=== PATIENT | male | born 1970 | race Caucasian/White ===

== ENCOUNTER 2020-09-01 10:42 | Outpatient (REF) | payer OTHER, SELFPAY ==
[2020-09-01 10:52] LABS: MANUAL DIFF FLAG NO
[2020-09-01 11:23] LABS: Basophils Percent Auto 0.5 % (0-2); Eosinophils Absolute Auto 0.2 X10*3/uL (0.0-0.4); Hemoglobin 14.2 g/dl (14.0-18.0); Imm Gran Abs Auto 0.05 X10*3/uL (0.00-0.03); Imm Gran Pct Auto 0.7 % (0.0-0.4); Lymphocytes Absolute Auto 2.3 X10*3/uL (1.2-4.9); Lymphocytes Percent Auto 31.3 % (20-40); Mean Corpuscular HGB Conc 32.3 g/dl (31.0-36.0); Mean Corpuscular Hemoglobin 29.1 pg (27.0-33.0); Mean Corpuscular Volume 90.2 fL (80-98); Mean Platelet Volume 10.7 fL (9.4-12.4); Monocytes Absolute Auto 0.5 X10*3/uL (0.1-1.2); Neutrophils Absolute Auto 4.3 X10*3/uL (2.0-8.3); Neutrophils Percent Auto 58.5 % (45-73); Platelet Count 239 X10*3/uL (160-400); Red Blood Count 4.88 X10*6/uL (4.60-5.80); Red Cell Distribution Width 13.8 % (11.0-16.0); White Blood Count 7.4 X10*3/uL (4.8-10.8)
[2020-09-01 11:35] LABS: Glucose Urine UA NEG (NEG); Leukocyte Esterase Urine NEG (NEG); Nitrite Urine NEG (NEG); PH 5.5 (5.0-8.0); Specific Gravity - Urine >= 1.030 (1.005-1.025); Urine Blood NEG (NEG); Urine Ketones NEG (NEG); Urine Protein NEG (NEG-TRACE)
[2020-09-01 11:39] LABS: Appearance Urine HAZY; Color Urine YELLOW
[2020-09-01 12:24] LABS: Alanine Aminotransferase 16 U/L (0-40); Albumin Level 4.4 g/dL (3.5-5.0); Alkaline Phosphatase 59 U/L (39-117); Anion Gap 13 (12-20); Aspartate Amino Transferase 18 U/L (5-37); Blood Urea Nitrogen 26 mg/dL (9-16); Calcium 9.2 mg/dL (8.4-10.2); Carbon Dioxide 29 mmol/L (22-29); Chloride 104 mmol/L (96-108); Cholesterol 195 mg/dL; Estimated Glomerular Filt Rate > 60; Glucose Fasting 101 mg/dL (60-99); HDL Cholesterol 73 mg/dL; LDL Cholesterol Calculated 113 mg/dl; Potassium 3.9 mmol/L (3.3-5.1); Sodium 142 mmol/L (135-145); Triglycerides 47 mg/dL
[2020-09-01 12:38] LABS: PSA,Total (Free>4and<10) 2.13 ng/mL (0.00-4.00)
== END 2020-09-01 10:43 | disposition home or self-care (01) ==
LOC: HO.LNP 10:42
PROVIDERS: Visit Provider Internal Medicine
DX: Z00.00 Encounter for general adult medical examination without abnormal findings (principal); R79.89 Other specified abnormal findings of blood chemistry; I10 Essential (primary) hypertension; Z12.5 Encounter for screening for malignant neoplasm of prostate
CPT/HCPCS: 80053; 80061; 81003; 84153; 85025

== ENCOUNTER 2022-01-04 10:41 | Outpatient (REF) | payer OTHER, SELFPAY ==
[2022-01-04 10:45] LABS: MANUAL DIFF FLAG NO
[2022-01-04 11:10] LABS: Basophils Absolute Auto 0.1 X10*3/uL (0.0-0.2); Basophils Percent Auto 0.8 % (0-2); Eosinophils Absolute Auto 0.2 X10*3/uL (0.0-0.4); Eosinophils Percent Auto 2.8 % (0-4); Hematocrit 43.9 % (42.0-52.0); Imm Gran Abs Auto 0.02 X10*3/uL (0.00-0.03); Imm Gran Pct Auto 0.3 % (0.0-0.4); Lymphocytes Absolute Auto 1.7 X10*3/uL (1.2-4.9); Mean Corpuscular HGB Conc 31.9 g/dl (31.0-36.0); Mean Corpuscular Hemoglobin 28.5 pg (27.0-33.0); Mean Corpuscular Volume 89.2 fL (80.0-98.0); Mean Platelet Volume 10.6 fL (9.4-12.4); Monocytes Absolute Auto 0.5 X10*3/uL (0.1-1.2); Monocytes Percent Auto 7.8 % (2-11); Neutrophils Absolute Auto 3.9 x10*3/uL (2.0-8.3); Neutrophils Percent Auto 61.3 % (45-73); Platelet Count 271 X10*3/uL (160-400); Red Blood Count 4.92 X10*6/uL (4.60-5.80); Red Cell Distribution Width 13.8 % (11.0-16.0); White Blood Count 6.4 X10*3/uL (4.8-10.8)
[2022-01-04 11:21] LABS: Alanine Aminotransferase 17 U/L (0-40); Albumin Level 4.4 g/dL (3.5-5.0); Alkaline Phosphatase 61 U/L (39-117); Anion Gap 13 (12-20); Aspartate Amino Transferase 19 U/L (5-37); Bilirubin Total 0.8 mg/dL (0.0-1.0); Blood Urea Nitrogen 24 mg/dL (9-16); Calcium 9.3 mg/dL (8.4-10.2); Carbon Dioxide 29 mmol/L (22-29); Chloride 104 mmol/L (96-108); Cholesterol 191 mg/dL; Estimated Glomerular Filt Rate > 60; Glucose Fasting 106 mg/dL (60-99); HDL Cholesterol 76 mg/dL; LDL Cholesterol Calculated 107 mg/dl; Sodium 142 mmol/L (135-145); Total Protein 7.2 g/dL (6.5-8.0); Triglycerides 40 mg/dL
[2022-01-04 11:47] LABS: PSA,Total (Free>4and<10) 2.01 ng/mL (0.00-4.00)
[2022-01-04 11:50] LABS: Appearance Urine CLEAR; Color Urine YELLOW; Glucose Urine UA NEG (NEG); Leukocyte Esterase Urine NEG (NEG); Nitrite Urine NEG (NEG); PH 5.5 (5.0-8.0); Specific Gravity - Urine >= 1.030 (1.005-1.025); Urine Blood NEG (NEG); Urine Ketones NEG (NEG); Urine Protein NEG (NEG-TRACE)
== END 2022-01-04 10:42 | disposition home or self-care (01) ==
LOC: HO.LNP 10:41
PROVIDERS: Visit Provider Internal Medicine
DX: Z00.00 Encounter for general adult medical examination without abnormal findings (principal); I10 Essential (primary) hypertension; Z12.5 Encounter for screening for malignant neoplasm of prostate
CPT/HCPCS: 80053; 80061; 81003; 84153; 85025

== ENCOUNTER 2023-03-18 10:42 | Outpatient (REF) | payer OTHER, SELFPAY ==
[2023-03-18 10:53] LABS: MANUAL DIFF FLAG NO
[2023-03-18 11:53] LABS: Basophils Absolute Auto 0.1 X10*3/uL (0.0-0.2); Basophils Percent Auto 0.7 % (0-2); Eosinophils Absolute Auto 0.4 X10*3/uL (0.0-0.4); Eosinophils Percent Auto 5.8 % (0-4); Hematocrit 44.1 % (42.0-52.0); Hemoglobin 14.3 g/dl (14.0-18.0); Imm Gran Abs Auto 0.02 X10*3/uL (0.00-0.03); Imm Gran Pct Auto 0.3 % (0.0-0.4); Lymphocytes Absolute Auto 1.9 X10*3/uL (1.2-4.9); Lymphocytes Percent Auto 28.1 % (20-40); Mean Corpuscular HGB Conc 32.4 g/dl (31.0-36.0); Mean Corpuscular Hemoglobin 28.6 pg (27.0-33.0); Mean Corpuscular Volume 88.2 fL (80.0-98.0); Mean Platelet Volume 10.3 fL (9.4-12.4); Monocytes Absolute Auto 0.5 X10*3/uL (0.1-1.2); Monocytes Percent Auto 6.8 % (2-11); Neutrophils Percent Auto 58.3 % (45-73); Platelet Count 254 X10*3/uL (160-400); White Blood Count 6.9 X10*3/uL (4.8-10.8)
[2023-03-18 12:02] LABS: Appearance Urine Clear; Color Urine Yellow; Glucose Urine UA Negative (Negative); Leukocyte Esterase Urine Negative (Negative); Nitrite Urine Negative (Negative); PH 5.5 (5.0-9.0); Specific Gravity - Urine 1.025 (1.005-1.025); Urine Blood Negative (Negative); Urine Ketones Negative (Negative); Urine Protein Negative (Neg-Trace)
[2023-03-18 12:08] LABS: Bacteria Urine None Seen (None Seen); Hyaline Casts Urine 0-2 /LPF (0-2); RBC Urine 0-2 /HPF (0-2); Squamous Epithelial Cell Urine 0-2 /HPF (0-2); WBC Urine 0-5 /HPF (0-5)
[2023-03-18 12:54] LABS: Alanine Aminotransferase 13 U/L (0-40); Albumin Level 4.3 g/dL (3.5-5.0); Alkaline Phosphatase 51 U/L (39-117); Anion Gap 11 (12-20); Aspartate Amino Transferase 17 U/L (5-37); Bilirubin Total 0.8 mg/dL (0.0-1.0); Blood Urea Nitrogen 20 mg/dL (9-16); Calcium 9.4 mg/dL (8.4-10.2); Carbon Dioxide 29 mmol/L (22-29); Chloride 104 mmol/L (96-108); Cholesterol 204 mg/dL (<200); Estimated Glomerular Filt Rate > 60; Glucose Fasting 102 mg/dL (60-99); HDL Cholesterol 70 mg/dL (>40); LDL Cholesterol Calculated 120 mg/dL (<100); Potassium 3.8 mmol/L (3.3-5.1); Sodium 140 mmol/L (135-145); Total Protein 7.2 g/dL (6.5-8.0); Triglycerides 72 mg/dL (<150)
[2023-03-18 13:12] LABS: PSA,Total (Free>4and<10) 2.84 ng/mL (0.00-4.00)
== END 2023-03-18 10:43 | disposition home or self-care (01) ==
LOC: HO.LNP 10:42
PROVIDERS: Visit Provider Internal Medicine
DX: Z00.00 Encounter for general adult medical examination without abnormal findings (principal); I10 Essential (primary) hypertension; Z12.5 Encounter for screening for malignant neoplasm of prostate
CPT/HCPCS: 80053; 80061; 81001; 84153; 85025

== ENCOUNTER 2024-05-07 11:46 | Outpatient (REF) | payer OTHER, SELFPAY ==
[2024-05-07 11:49] LABS: MANUAL DIFF FLAG NO
[2024-05-07 12:12] LABS: Appearance Urine Clear; Basophils Percent Auto 0.5 % (0-2); Color Urine Yellow; Eosinophils Absolute Auto 0.3 X10*3/uL (0.0-0.4); Eosinophils Percent Auto 3.4 % (0-4); Glucose Urine UA Negative (Negative); Hematocrit 44.6 % (42.0-52.0); Hemoglobin 14.2 g/dl (14.0-18.0); Imm Gran Abs Auto 0.04 X10*3/uL (0.00-0.03); Imm Gran Pct Auto 0.5 % (0.0-0.4); Leukocyte Esterase Urine Negative (Negative); Lymphocytes Absolute Auto 1.9 X10*3/uL (1.2-4.9); Lymphocytes Percent Auto 25.3 % (20-40); Mean Corpuscular HGB Conc 31.8 g/dl (31.0-36.0); Mean Corpuscular Hemoglobin 28.1 pg (27.0-33.0); Mean Corpuscular Volume 88.1 fL (80.0-98.0); Mean Platelet Volume 11.4 fL (9.4-12.4); Monocytes Absolute Auto 0.5 X10*3/uL (0.1-1.2); Neutrophils Absolute Auto 4.7 x10*3/uL (2.0-8.3); Neutrophils Percent Auto 63.3 % (45-73); Nitrite Urine Negative (Negative); PH 6.5 (5.0-9.0); Platelet Count 230 X10*3/uL (160-400); Red Blood Count 5.06 X10*6/uL (4.60-5.80); Red Cell Distribution Width 14.6 % (11.0-16.0); Urine Blood Negative (Negative); Urine Ketones Negative (Negative); Urine Protein Negative (Neg-Trace); White Blood Count 7.4 X10*3/uL (4.8-10.8)
[2024-05-07 12:16] LABS: Bacteria Urine None Seen (None Seen); Hyaline Casts Urine 0-2 /LPF (0-2); RBC Urine 0-2 /HPF (0-2); Squamous Epithelial Cell Urine 0-2 /HPF (0-2); WBC Urine 0-5 /HPF (0-5)
[2024-05-07 12:34] LABS: Anion Gap 13 (12-20); Bilirubin Total 0.9 mg/dL (0.0-1.0); Blood Urea Nitrogen 24 mg/dL (9-16); Calcium 9.7 mg/dL (8.4-10.2); Carbon Dioxide 28 mmol/L (22-29); Chloride 104 mmol/L (96-108); Estimated Glomerular Filt Rate > 60; Glucose Fasting 100 mg/dL (60-99); Potassium 3.9 mmol/L (3.3-5.1); Sodium 141 mmol/L (135-145)
[2024-05-07 12:35] LABS: Alanine Aminotransferase 26 U/L (0-40); Albumin Level 4.3 g/dL (3.5-5.0); Alkaline Phosphatase 57 U/L (39-117); Aspartate Amino Transferase 25 U/L (5-37); Cholesterol 222 mg/dL (<200); HDL Cholesterol 75 mg/dL (>40); LDL Cholesterol Calculated 127 mg/dL (<100); Total Protein 7.4 g/dL (6.5-8.0); Triglycerides 101 mg/dL (<150)
[2024-05-07 12:51] LABS: PSA,Total (Free>4and<10) 4.22 ng/mL (0.00-4.00)
[2024-05-11 12:09] LABS: Free Prostate Spec Ag 0.6 ng/mL; Percent Free Prostate Spec Ag 16 % (calc) (>25); Prostate Specific Ag Total 3.7 ng/mL (< OR = 4.0)
== END 2024-05-07 11:47 | disposition home or self-care (01) ==
LOC: HO.LNP 11:46
PROVIDERS: Visit Provider Internal Medicine
DX: Z00.00 Encounter for general adult medical examination without abnormal findings (principal); I10 Essential (primary) hypertension; Z12.5 Encounter for screening for malignant neoplasm of prostate; R97.20 Elevated prostate specific antigen [PSA]
CPT/HCPCS: 80053; 80061; 81001; 84153; 84154; 85025

== ENCOUNTER 2024-06-01 11:52 | Outpatient (REF) | payer OTHER, SELFPAY | END 2024-06-01 11:53 | disposition home or self-care (01) | LOC: HO.LNP 11:52 | PROVIDERS: Visit Provider Internal Medicine | DX: R97.20 Elevated prostate specific antigen [PSA] (principal); Z12.5 Encounter for screening for malignant neoplasm of prostate | CPT/HCPCS: 84153 ==

== ENCOUNTER 2024-07-02 11:14 | Outpatient (REF) | payer OTHER, SELFPAY ==
[2024-07-02 12:18] LABS: PSA,Total (Free>4and<10) 2.91 ng/mL (0.00-4.00)
== END 2024-07-02 11:15 | disposition home or self-care (01) ==
LOC: HO.LNP 11:14
PROVIDERS: Visit Provider Internal Medicine
DX: R97.20 Elevated prostate specific antigen [PSA] (principal); Z12.5 Encounter for screening for malignant neoplasm of prostate
CPT/HCPCS: 84153

== ENCOUNTER 2024-10-01 10:28 | Outpatient (REF) | payer BC, SELFPAY ==
[2024-10-01 11:15] LABS: PSA,Total (Free>4and<10) 3.27 ng/mL (0.00-4.00)
--- OUTSIDE RECORDS SUMMARY | 2024-10-01 11:34 | XMS_ITS ---
Author Organization Sp Manuel MD Address [address] [place], [place] [phone] Care Team Providers Care Cigarette Inspector Name Role Phone Sp Manuel Primary Care Provider [phone] Results Component Value Reference Range Notes PSA,Total (Free>4and<10) (No t yet reviewed by provider) Interpretation: Performing Lab:[facility], [address] [place] [phone] Notes/Report: PSA,Total (Free>4and<10) 3.27 0.00-4.00 ng/mL A Free PSA was not performed: The percentage of Free PSA can be used to enhance the differentiation of prostate cancer from benign prostatic disease in subjects whose PSA levels are between 4.0 and 10.0 ng/mL. For subjects whose PSA levels are below 4.0 or above 10.0 ng/mL, the risk of prostate cancer is determined on the basis of the PSA alone. Therefore the % Free PSA is recommended only for those subjects whose PSA levels are between 4.0 and 10.0 ng/mL. PSA methodology: Hatfield Alinity i Chemiluminescent Microparticle Immunoassay (CMIA) REASON FOR VISIT PSA Encounters Encounter Location Date Provider Diagnosis Sp Manuel MD [address] [place], [place] [phone] 10/01/2024 Sp Manuel Rising PSA level R97.20 Assessments Encounter Date Diagnosis (ICD Code) Assessment Notes Treatment Notes Treatment Clinical Notes Section Notes 10/01/2024 Rising PSA level (ICD-10 - R97.20) Plan Of Treatment Pending Test Test Name Order Date PSA,Total (Free>4and<10) 10/01/2024 Next Appt Details Provider Name:Sp Ng ier, 05/10/2025 07:15:00 AM, [address], [address], [place], [place], [phone], Provider Name:Sp Ng ier, 05/17/2025 02:30:00 PM, [address], [address], [place], [phone], Progress Notes * Ricky SOMMER PDOB:[birth year] (54 yo M)Acc No.[id number]:10/01/2024 Progress Note Patient:Ricky MUELLER Provider:?Sp Manuel MD :1970???Age:54 Y???Sex:Male Romario e:10/01/2024 Address: [address], [place] [facility] Subjective: * Chief Complaints: * ???1. PSA. * Medical History:? Objective: * Vitals:? Assessment: * Assessment: 1.?Rising PSA level - R97.20 ??? Plan: * Treatment: * Procedure Codes:?32702 VENIP UNCT, ROUTINE* * * The named appointment provid er may or may not be the originator of this progress note, and it is not deemed complete until electronically signed by the appointment provider. Sign off status: Pending * Provider:?Sp Manuel MD Date:?0 10/01/2024 Generated for Chandni coreas/Ira/eTransmitting on:?10/01/2024 11:34 AM EDT
--- OUTSIDE RECORDS SUMMARY | 2024-10-01 11:34 | XMS_ITS ---
Author Organization Sp Manuel MD Address [address] [place] [address] [place], [place] [phone] Care Team Providers Care Advertising Internship Name Role Phone Sp Manuel Primary Care Provider REASON FOR VISIT REVIEW PSA AND CHECK BP Encounters Encounter Location Date Provider Diagnosis Sp Manuel MD [address] [facility] [address] [place], [place] [phone] 06/08/2024 Sp Manuel Plan Of Treatment Next Appt Details Provider Name:Sp betancur, 05/10/2025 07:15:00 AM, [address] [place] [address], [address], [place], [place], [phone], Provider Name:Sp betancur, 05/17/2025 02:30:00 PM, [address] [place] [address], [address], [place], [place], [phone], Progress Notes * Ricky SOMMER PDOB:[birth year] (54 yo M)Acc No.[id number]:06/08/2024 Progress Notes Patient:?Ricky SOMMER Provider:?Sp Manuel MD :1970???Age:53 Y???Sex:Male Romario e:06/08/2024 Address:[address], [place] Subjective: * Chief Complaints: * ???1. REVIEW PSA AND CHECK B P. * Medical History:? Objective: * Vitals:? Assessment: Plan: * Treatment: * * The named appointment provid er may or may not be the originator of this progress note, and it is not deemed complete until electronically signed by the appointment provider. Sign off status: Pending * Provider:?Sp Manuel MD Date:?1 08/09/2023 Generated for Chandni coreas/Ira/Byron on:?10/01/2024 11:34 AM EDT
--- OUTSIDE RECORDS SUMMARY | 2024-10-01 11:34 | XMS_ITS | Patient Health Record ---
Author Organization Sp Manuel MD Address [address] [place], [place] [phone] Care Team Providers Care Gas Dispatcher Name Role Phone Sp Manuel Primary Care Provider Allergies No Known Allergies Results Component Value Reference Range Notes Complete Blood Count Auto Di ff Reviewed date:05/07/2024 12:32:17 PM Interpretation: Performing Lab:, [address] [place] [phone] Notes/Report: White Blood Count 7.4 4.8-10.8 X10*3/uL Red Blood Count 5.06 4.60-5.80 X10*6/uL Hemoglobin 14.2 14.0-18.0 g/dl Hematocrit 44.6 42.0-52.0 % Mean Corpuscular Volume 88.1 80.0-98.0 fL Mean Corpuscular Hemoglobin 28.1 27.0-33.0 pg Mean Corpuscular HGB Conc 31.8 31.0-36.0 g/dl Red Cell Distribution Width 14.6 11.0-16.0 % Platelet Count 230 160-400 X10*3/uL Mean Platelet Volume 11.4 9.4-12.4 fL Neutrophils Percent Auto 63.3 45-73 % Imm Gran Pct Auto 0.5 0.0-0.4 % Lymphocytes Percent Auto 25.3 20-40 % Monocytes Percent Auto 7.0 2-11 % Eosinophils Percent Auto 3.4 0-4 % Basophils Percent Auto 0.5 0-2 % NRBC Pct Auto 0.0 0.0-0.2 /100WBC Neutrophils Absolute Auto 4.7 2.0-8.3 x10*3/u L Imm Gran Abs Auto 0.04 0.00-0.03 X10*3/uL Lymphocytes Absolute Auto 1.9 1.2-4.9 X10*3/u L Monocytes Absolute Auto 0.5 0.1-1.2 X10*3/uL Eosinophils Absolute Auto 0.3 0.0-0.4 X10*3/u L Basophils Absolute Auto 0.0 0.0-0.2 X10*3/uL NRBC Abs Auto 0.000 0.0-0.012 X10*3/uL Comprehensive [place]. Panel Fa st Reviewed date:05/07/2024 12:44:11 PM Interpretation: Performing Lab:, [address] [place] [phone] Notes/Report: Sodium 141 135-145 mmol/L Potassium 3.9 3.3-5.1 mmol/L Chloride 104 96-108 mmol/L Carbon Dioxide 28 22-29 mmol/L Anion Gap 13 12-20 Blood Urea Nitrogen 24 9-16 mg/dL Creatinine 0.92 0.5-1.4 mg/dL Estimated Glomerular Filt Rate > 60 NOTE: For -Malaysian individuals, multiply the result by 1.210. Chronic Kidney Disease: Estimated GFR < 60 mL/min/1.73m2 Severe Kidney Disease: Estimated GFR < 15 mL/min/1.73m2 Glucose Fasting 100 60-99 mg/dL A fasting glucose from 100-125 mg/dl is considered impaired (pre-diabetes). Calcium 9.7 8.4-10.2 mg/dL Bilirubin Total 0.9 0.0-1.0 mg/dL Aspartate Amino Transferase 25 5-37 U/L Alanine Aminotransferase 26 0-40 U/L Total Protein 7.4 6.5-8.0 g/dL Albumin Level 4.3 3.5-5.0 g/dL Alkaline Phosphatase 57 39-117 U/L Lipid Panel Reviewed date:05/07/2024 12:42:56 PM Interpretation: Performing Lab:, [address] [place] [phone] Notes/Report: Triglycerides 101 <150 mg/dL Desirable Triglyceride: less than 150 mg/dL Borderline High Triglyceride 150-199 mg/dL High Triglyceride: 200-499 mg/dL Very High Triglyceride: greater than or equal to 5OO mg/dL Cholesterol 222 <200 mg/dL Desirable Cholesterol: less than 200 mg/dL Borderline High Cholesterol: 200-239 mg/dL High Cholesterol: greater than 239 mg/dL LDL Cholesterol Calculated 127 <100 mg/dL Desirable LDL: less than 100 mg/dL Near Optimal/Above Optimal LDL: 110-129 mg/dL Borderline High LDL: 130-159 mg/dL High LDL: 160-189 mg/dL Very High LDL: greater than or equal to 190 mg/dL HDL Cholesterol 75 >40 mg/dL Desirable HDL: greater than 40 mg/dL Note: This HDL assay may give artificially low results in patients with liver disease. PSA,Total (Free>4and<10) Reviewed date:05/14/2024 06:08:26 PM Interpretation:see back 05-14-2024 Performing Lab:, [address] [place] [phone] Notes/Report: PSA,Total (Free>4and<10) 4.22 0.00-4.00 ng/mL PSA methodology: Hatfield Alinity i Chemiluminescent Microparticle Immunoassay (CMIA) UA ClnCatch+Micro w/rflx Cul t Reviewed date:05/07/2024 12:43:34 PM Interpretation: Performing Lab:, [address] [place] [phone] Notes/Report: Urine, Clean Catch Color Urine Yellow Appearance Urine Clear PH 6.5 5.0-9.0 Glucose Urine UA Negative Negative mg/dL Urine Blood Negative Negative Specific [place] - Urine 1.020 1.005-1.025 Urine Protein Negative Neg-Trace mg/dL Urine Ketones Negative Negative mg/dL Nitrite Urine Negative Negative Leukocyte Esterase Urine Negative Negative RBC Urine 0-2 0-2 /HPF WBC Urine 0-5 0-5 /HPF Squamous Epithelial Cell Urine 0-2 0-2 /HPF Bacteria Urine None Seen None Seen Hyaline Casts Urine 0-2 0-2 /LPF Occult Blood, Stool, Guaiac Reviewed date:06/02/2024 10:17:55 AM Interpretation:Negative Performing Lab: Notes/Report: Negative Occult Blood, Stool, Guaiac Neg PSA,Total (Free>4and<10) Reviewed date:06/01/2024 03:37:33 PM Interpretation: Performing Lab:[address] [phone] Notes/Report: PSA,Total (Free>4and<10) 3.50 0.00-4.00 ng/mL A Free PSA was not [...] between 4.0 and 10.0 ng/mL. PSA methodology: Chip Path Design Systemsnity i Chemiluminescent Microparticle Immunoassay (CMIA) PSA,Total (Free>4and<10) Reviewed date:07/02/2024 01:19:36 PM Interpretation: Performing Lab:[address] [phone] Notes/Report: PSA,Total (Free>4and<10) 2.91 0.00-4.00 ng/mL A Free PSA was not [...] between 4.0 and 10.0 ng/mL. PSA methodology: Chip Path Design Systemsnity i Chemiluminescent Microparticle Immunoassay (CMIA) PSA,Total (Free>4and<10) (No t yet reviewed by provider) Interpretation: Performing Lab:[address] [phone] Notes/Report: PSA,Total (Free>4and<10) 3.27 0.00-4.00 ng/mL A [...] Hatfield Alinity i Chemiluminescent Microparticle Immunoassay (CMIA) PSA Free and Total Reviewed date:05/11/2024 07:02:04 PM Interpretation: Performing Lab:, [address] [place] [phone] Notes/Report: Prostate Specific Ag Total 3.7 < OR = 4.0 ng/ mL Percent Free Prostate Spec Ag 16 >25 % (calc ) PSA(ng/mL) Free PSA(%) Estimated(x) Probability of Cancer(as%) 0-2.5 (*) Approx. 1 2.6-4.0(1) 0-27(2) 24(3) 4.1-10(4) 0-10 56 11-15 28 16-20 20 21-25 16 >or =26 8 >10(+) N/A >50 References:(1)Azul et al.:Urology 60: 469-474 (2001) (2)Suzanneona et al.:J.Urol 168: 922-925 (2001) Free PSA(%) Sensitivity(%) Specificity(%) < or = 25 85 19 < or = 30 93 9 (3)Catalona et al.:RENETTA 277: 1137-5767 (1996) (4)Catalona et al.:RENETTA 279: 1977-0837 (1997) (x)These estimates vary with age, ethnicity, family history and SD results. (*)The diagnostic usefulness of % Free PSA has not been established in patients with total PSA below 2.6 ng/mL (+)In men with PSA above 10 ng/mL, prostate cancer risk is determined by total PSA alone. The Total PSA value from this assay system is standardized against the equimolar PSA standard. The test result will be approximately 20% higher when compared to the WHO-standardized Total PSA (Siemens assay). Comparison of serial PSA results should be interpreted with this fact in mind. PSA was performed using the Kannan Olegario Immunoassay method. Values obtained from different assay methods cannot be used interchangeably. PSA levels, regardless of value, should not be interpreted as absolute evidence of the presence or absence of disease. THIS TEST WAS PERFORMED AT: [facility] [address] [place] [phone] RYLAN CASPER MD Free Prostate Spec Ag 0.6 Reason For Referral No Information Medications Medication SIG (Take, Route, Frequency, Duration) Notes Start Date End Date Status Breo Ellipta 200-25 MCG/ACT INHALE 1 PUFF INTO LUNGS ONCE DAILY INHALATION ONCE A DAY 30 DAYS Inhalation Once a day for 30 days Not-Taking Fluticasone Furoate-Vilanterol 100-25 MCG/ACT 1 puff Inhalation Once a day for 30 days 05/14/2024 Active Albuterol Sulfate HFA 108 (90 Base) MCG/ACT 1 puff as needed Inhalation every 4 hrs 07/19/2022 Active AeroChamber w/FLOWSIGnal - as directed 07/19/2022 Active Fluticasone-Salmeterol 230-21 MCG/ACT 2 puffs Inhalation Twice a day for 30 days 01/21/2024 Active Immunizations Vaccine Route Administration Date Status Comme nts Flu Vaccine Unknown 05/30/2012 Administered Flu Vaccine IM Intramuscular 07/10/2013 Administered Flu Vaccine IM Intramuscular 06/01/2014 Administered Flu Vaccine IM Intramuscular 04/07/2015 Administered Fluarix Quadrivalent IM Intramuscular 2016 Administe red Fluarix Quadrivalent IM Intramuscular 05/31/2017 Administe red Fluarix Quadrivalent IM Intramuscular 05/26/2018 Administe red Fluarix Quadrivalent IM Intramuscular 04/21/2019 Administe red Fluarix Quadrivalent IM Intramuscular 04/04/2020 Administe red Covid Vaccine Unknown 09/29/2020 Administered Pfizer Covid Vaccine Unknown 10/20/2020 Administered Pfizer SARS-COV-2 Pfizer Unknown 04/28/2021 Administered [facility] Fluarix Quadrivalent IM Intramuscular 06/15/2021 Administe red Fluarix Quadrivalent Unknown 05/26/2022 Administered [facility] Fluarix Quadrivalent IM Intramuscular 03/18/2023 Administe red Fluarix Quadrivalent - 150 IM Intramuscular 05/07/2024 Adm inistered Social History Tobacco Use: Social History Observation Description Date Details (start date - stop date) Never Smoker NA - NA Tobacco Use/Smoking Question Answer Notes Patient is a nonsmoker Additional Findings: Tobacco Non-User Cu rrent non-smoker, currently using no form of tobacco Alcohol Screen Question Answer Notes Did you have a drink contain ing alcohol in the past year? Yes How often did you have a dri nk containing alcohol in the past year? 2 to 4 times a month (2 points) How many drinks did you have on a typical day when you were drinking in the past year? 1 or 2 drinks (0 point) How often did you have 6 or more drinks on one occasion in the past year? 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) Active confirmed Problem 51003147 Essential hypertension (I10) Active confirmed Problem 470952844 Mild intermitten t asthma with acute exacerbation (J45.21) Active confirmed Vital Signs Blood pressure diastolic 90 mm Hg 05/14/2024 federico ght is up 8 pounds since 03-26-23 Height 69 in 05/14/2024 weight is up 8 pounds since 03-26-23 Blood pressure systolic 172 mm Hg 05/14/2024 weig ht is up 8 pounds since 03-26-23 Weight 162 lbs 05/14/2024 weight is up 8 pounds since 03-26-23 BMI 23.92 kg/m2 05/14/2024 weight is up 8 pounds since 03-26-23 Encounters Encounter Location Date Provider Diagnosis Sp Manuel MD [address] [place] [id number] 05/07/2024 Sp Manuel Blood tests for routine general physical examination Z00.00 ; Encounter for immunization Z23 and Essential hypertension I10 Sp Manuel MD [address] [place] [id number] 05/14/2024 Sp Manuel PSA elevation R97.20 ; Annual physical exam Z00.00 ; Exercise induced bronchospasm J45.990 ; Essential hypertension I10 ; Colon cancer screening Z12.11 and Depression screening Z13.31 Sp Manuel MD [address] [place] [id number] 06/01/2024 Sp Manuel PSA elevation R97.20 Sp Manuel MD [address] [place] [id number] 07/02/2024 Sp Manuel Rising PSA level R97.20 Sp Manuel MD [address] [place] [id number] 10/01/2024 Sp Manuel Rising PSA level R97.20 Sp Manuel MD [address] [place] [id number] 01/20/2024 Sp Manuel MD [address] [place] [id number] 01/20/2024 Sp Manuel MD [address] [place] [id number] 01/21/2024 Sp Manuel MD [address] [place] [id number] 04/14/2024 Sp Manuel Exercise induced bronchospasm J45.990 Assessments Encounter Date Diagnosis (ICD Code) Assessment Notes Treatment Notes Treatment Clinical Notes Section Notes 05/07/2024 Blood tests for routine general physical examination (ICD-10 - Z00.00) 05/07/2024 Encounter for immunization (ICD-10 - Z23) 05/14/2024 PSA elevation (ICD-10 - R97.20) 05/14/2024 Annual physical exam (ICD-10 - Z00.00) labs reviewed and discussed with patient 06/01/2024 PSA elevation (ICD-10 - R97.20) 07/02/2024 Rising PSA level (ICD-10 - R97.20) 10/01/2024 Rising PSA level (ICD-10 - R97.20) 04/14/2024 Exercise induced bronchospasm (ICD-10 - J45.990) 05/07/2024 Essential hypertension (ICD-10 - I10) 05/14/2024 Exercise induced bronchospasm (ICD-10 - J45.990) 05/14/2024 Essential hypertension (ICD-10 - I10) will check again in few weeks, will continue current regiment 05/14/2024 Colon cancer screening (ICD-10 - Z12.11) guaiac negative 05/14/2024 Depression screening (ICD-10 - Z13.31) negative screen Plan Of Treatment Pending Test Test Name Order Date Electrocardiogram (EKG) 10/13/2015 Electrocardiogram (EKG) 11/29/2017 XR CHEST 2 VIEW PA & LAT 11/29/2017 PSA,Total (Free>4and<10) 10/01/2024 Next Appt Details Provider Name:Sp Ng ier, 05/10/2025 07:15:00 AM, [address] [place] [address], [address], [place], [place], [phone], Provider Name:Sp Ng ier, 05/17/2025 02:30:00 PM, [address] [place] [address], [address], [place], [place], [phone], Insurance Providers Payer Name Payer Address Payer Phone Subscriber Number Group Number Insured Name Patient Relationship to Insured Coverage Start Date Coverage End Date [employer] [address] [place], [place] [id number] Ricky Chan Self - patient is the insured Medical (General) History Medical History History ICD Code Colonoscopy 06/15/[address] Cesar negative repeat in 5 years due to family
--- OUTSIDE RECORDS SUMMARY | 2024-10-01 11:34 | XMS_ITS ---
Author Organization Sp Manuel MD Address [address] [place] [phone] Care Team Providers Care Electronic Game Developer Name Role Phone Sp Manuel Primary Care Provider Results Component Value Reference Range Notes PSA,Total (Free>4and<10) Reviewed date:07/02/2024 01:19:36 PM Interpretation: Performing Lab:[facility], [address] [place] [phone] Notes/Report: PSA,Total (Free>4and<10) 2.91 0.00-4.00 ng/mL A [...] Chemiluminescent Microparticle Immunoassay (CMIA) REASON FOR VISIT 1 month PSA repeat Encounters Encounter Location Date Provider Diagnosis Sp Manuel MD [address] [facility] [place] [id number] 07/02/2024 Sp Manuel Rising PSA level R97.20 Assessments Encounter Date Diagnosis (ICD Code) Assessment Notes Treatment Notes Treatment Clinical Notes Section Notes 07/02/2024 Rising PSA level (ICD-10 - R97.20) Plan Of Treatment Next Appt Details Provider Name:Sp sierrar, 05/10/2025 07:15:00 AM, [address], [address], [place], [place], [phone], Provider Name:Sp Ng ier, 05/17/2025 02:30:00 PM, [address] [facility], [address], [place], [phone], Progress Notes * Ricky SOMMER PDOB:[birth year] (54 yo M)Acc No.[id number]:07/02/2024 Progress Note Patient:?Ricky SOMMER Provider:?Sp Manuel MD :1970???Age:53 Y???Sex:Male Romario e:07/02/2024 Address: [address], [facility] Subjective: * Chief Complaints: * ???1. 1 month PSA repeat. * Medical History:? Objective: * Vitals:? Assessment: * Assessment: 1.?Rising PSA level - R97.20 (Primary)??? Plan: * Treatment: * Procedure Codes:?46867 VENIP UNCT, ROUTINE* * * The named appointment provid er may or may not be the originator of this progress note, and it is not deemed complete until electronically signed by the appointment provider. Sign off status: Pending * Provider:?pS Manuel MD Date:?0 07/02/2024 Generated for Chandni coreas/Ira/eTransmitting on:?10/01/2024 11:34 AM EDT
== END 2024-10-01 10:29 | disposition home or self-care (01) ==
LOC: HO.LNP 10:28
PROVIDERS: Visit Provider Internal Medicine
DX: Z12.5 Encounter for screening for malignant neoplasm of prostate (principal); R97.20 Elevated prostate specific antigen [PSA]
CPT/HCPCS: 84153

== ENCOUNTER 2025-05-10 10:59 | Outpatient (REF) | payer BC, SELFPAY ==
--- OUTSIDE RECORDS SUMMARY | 2022-07-03 18:00 | XMS_ITS | Encounter Summary ---
Author Organization [facility] Address [address] [facility] [address] [place] [phone] Phone Care Team Providers Care Brand Development Manager Name Role Phone Sp Manuel MD Primary Care Provider Encounter Details Date Type Department Care Team (Late st Contact Info) Description 07/03/2022 6:00 PM EST Hospital Encounter [facility] [address] [place] [phone] Elham Dejesus CNP [address] [place] [address] [email or web address] Social History Tobacco Use Types Packs/Day Years Used Date Smoking Tobacco: Never Smokeless Tobacco: Never Education Answer Date Recorded Are you interested in more education? Not on terell e 10/27/2022 Are you concerned about learning? Not on file 10/27/2022 No 10/27/2022 No 10/27/2022 Digital Access Answer Date Recorded No 11/25/2022 No 11/25/2022 Reliable internet access at home? Not on file 11/25/2022 Device with a working camera? Not on file Sex and Gender Information Value Date Recorded Sex Assigned at Not on file Legal Sex Male 7:56 AM EDT Gender Identity Not on file Sexual Orientation Not on file documented as of this encounter Plan of Treatment Not on file documented as of this encounter Procedures Procedure Name Priority Date/Time Associated Diagnosis Comments XR CHEST PA AND LATERAL 2 VIEWS Urgent/patient waiting 07/03/2022 7:01 PM EST Fever, unspecified Acute cough documented in this encounter Results * XR CHEST PA AND LATERAL 2 VIEWS (07/03/2022 7:01 PM EST) Anatomical Region Laterality Modality Chest Computed Radiogr aphy 07/03/2022 7:21 PM EST Impressions 07/03/2022 7:31 PM EST No acute abnormality. ATTESTATION: Ray Sykes as teaching physician, have reviewed the images for this case and if necessary edited the report originally created by Braxton Mendoza. Narrative 07/03/2022 7:31 PM EST XR CHEST PA AND LATERAL 2 VIEWS COMPARISON: None FINDINGS: Devices/Tubes/Lines: None. Lungs: The lungs are clear. No focal consolidation or pulmonary edema. Pleura: No pleural effusion or pneumothorax. Heart/Mediastinum: Normal heart and mediastinum. Bones/Soft Tissues: No significant skeletal abnormality. Procedure Note Ray Garibay MBBS - 07/03/2022 XR CHEST PA AND LATERAL 2 VIEWS COMPARISON: None FINDINGS: Devices/Tubes/Lines: None. Lungs: The lungs are clear. No focal consolidation or pulmonary edema. Pleura: No pleural effusion or pneumothorax. Heart/Mediastinum: Normal heart and mediastinum. Bones/Soft Tissues: No significant skeletal abnormality. IMPRESSION: No acute abnormality. ATTESTATION: Ray Sykes as teaching physician, have reviewed theimages for this case and if necessary edited the report originally createdby Braxton Mendoza. Elham Dejesus SCHOOL BUS DRIVER IMG XR CHEST Final Resul t documented in this encounter Visit Diagnoses Not on filedocumented in this encounter Additional Health Concerns Infection Onset Date Last Indicated Resolved Time CoV-Risk 05/19/2024 05/19/2024 05/30/2024 1:21 AM EST documented as of this encounter Care Teams Brand Development Manager Relationship Specialty Start Date End Date Sp Manuel MD [address] [place] [address] Dr Metcalf, LARA [address] PCP - General Internal Medicine 09/20/21 documented as of this encounter Additional Source Comments The information contained in this document represents components of the legal health record. It is not the complete legal health record.[facility]
[2025-05-10 11:05] LABS: MANUAL DIFF FLAG NO
[2025-05-10 11:15] LABS: Appearance Urine Clear; Glucose Urine UA Negative (Negative); PH 5.5 (5.0-9.0); Specific Gravity - Urine 1.025 (1.005-1.025)
[2025-05-10 11:17] LABS: Hematocrit 44.6 % (42.0-52.0); Hemoglobin 14.1 g/dl (14.0-18.0); Imm Gran Abs Auto 0.02 X10*3/uL (0.00-0.03); Imm Gran Pct Auto 0.4 % (0.0-0.4); Lymphocytes Absolute Auto 2.0 X10*3/uL (1.2-4.9); Mean Corpuscular HGB Conc 31.6 g/dl (31.0-36.0); Mean Corpuscular Hemoglobin 27.8 pg (27.0-33.0); Mean Corpuscular Volume 87.8 fL (80.0-98.0); NRBC Abs Auto 0.000 X10*3/uL (0.0-0.012); NRBC Pct Auto 0.0 /100WBC (0.0-0.2); Platelet Count 283 X10*3/uL (160-400); Red Blood Count 5.08 X10*6/uL (4.60-5.80); White Blood Count 5.5 X10*3/uL (4.8-10.8)
[2025-05-10 11:55] LABS: PSA,Total (Free>4and<10) 2.24 ng/mL (0.00-4.00)
[2025-05-10 12:02] LABS: Alanine Aminotransferase 18 U/L (0-40); Albumin Level 4.5 g/dL (3.5-5.0); Alkaline Phosphatase 60 U/L (39-117); Anion Gap 12 (12-20); Aspartate Amino Transferase 20 U/L (5-37); Blood Urea Nitrogen 21 mg/dL (9-16); Calcium 9.4 mg/dL (8.4-10.2); Carbon Dioxide 29 mmol/L (22-29); Chloride 107 mmol/L (96-108); Cholesterol 199 mg/dL (<200); Estimated Glomerular Filt Rate > 60; HDL Cholesterol 56 mg/dL (>40); Potassium 3.8 mmol/L (3.3-5.1); Sodium 144 mmol/L (135-145); Total Protein 7.1 g/dL (6.5-8.0); Triglycerides 113 mg/dL (<150)
--- OUTSIDE RECORDS SUMMARY | 2025-05-10 13:14 | XMS_ITS | Clinical Summary ---
Author Organization [facility] Address [address] [address] Phone Care Team Providers Care Chief Optometry Service Name Role Phone Sp Manuel MD Primary Care Provider Allergies No known active allergies Medications BREO ELLIPTA 200-25 mcg/dose inhaler INHALE 1 PUFF INTO THE LUNGS EVERY DAY 2 Active doxycycline monohydrate (MONODOX) 100 MG capsule Take 1 capsule (100 mg total) by mouth 2 (two) times a day. 20 capsule 3 Active Additional Information Patient not taking.Reported on 05/19/2024 albuterol 2.5 mg /3 mL (0.083 %) nebulizer solution Take 3 mL (2.5 mg total) by nebulization every 6 (six) hours as needed. 270 mL 4 Active Active Problems Problem Noted Date Diagnosed Date Essential hypertension 07/03/2022 Exercise induced bronchospasm 07/03/2022 Mild persistent asthma with exacerbation 023 Immunizations No known immunizations Social History Tobacco Use Types Packs/Day Years Used Date Smoking Tobacco: Never Smokeless Tobacco: Never Tobacco Cessation:Counseling Given: Not Answered Education Answer Date Recorded Are you interested [...] on file Sexual Orientation Not on file Last Filed Vital Signs Vital Sign Reading Time Taken Comments Blood Pressure 156/92 05/19/2024 10:02 AM EST Pulse 75 05/19/2024 10:02 AM EST Temperature 36.7 C (98 F) 05/19/2024 10:02 AM EST Respiratory Rate 18 05/19/2024 10:0 2 AM EST Oxygen Saturation 97% 05/19/2024 10: 02 AM EST Inhaled Oxygen Concentration - - Weight 65.8 kg (145 lb) 07/03/2022 5:29 PM EST patient reported Height 176.5 cm (5' 9.5 ) 07/03/2022 5: 29 PM EST patient reported Body Mass Index 21.11 07/03/2022 5:29 PM EST Plan of Treatment Health Maintenance Due Date Last Done Comments Adult Td,Tdap Booster 1968 LIPID PANEL 1968 DEPRESSION SCREENING 1980 HEPATITIS C SCREENING 1986 HIV ONE-TIME SCREENING (18-65 YEARS) 1986 PNEUMOCOCCAL VACCINES (50+ years) (1 of 2 - PCV) 1987 COLOGUARD 2013 COLONOSCOPY 2013 COLORECTAL CANCER SCREENING 2013 FIT TEST 2013 FOBT 2013 SIGMOIDOSCOPY 2013 VIRTUAL COLONOSCOPY 2013 RSV VACCINE (1 - Risk 50-74 years 1-dose series) 2018 ZOSTER VACCINES (1 of 2) 2018 BLOOD PRESSURE 11/16/2024 05/19/2024 INFLUENZA VACCINE (#1) 2025 , 03/18/2023, 05/26/2022, Additional history exists COVID-19 VACCINE ( - 2024- season) 2025 04/28/2021, 10/20/2020, 09/29/2020 SMOKING STATUS SCREENING (Once After 26 Yrs) Completed 05/19/2024 HEPATITIS A VACCINES Aged Out No long er eligible based on patient's age to complete this topic HIB VACCINES Aged Out No longer eligi ble based on patient's age to complete this topic IPV VACCINES Aged Out No longer eligi ble based on patient's age to complete this topic MENINGOCOCCAL VACCINES (ACWY) Aged Out No longer eligible based on patient's age to complete this topic MENINGOCOCCAL VACCINES (B) Aged Out N o longer eligible based on patient's age to complete this topic Medical Devices Not on file Insurance [facility] Member Subscriber Plan / Payer (Ef fective 2022-Present) Name:Ricky Sommer Relation to Subscriber:Spouse Name:DEVEN SOMMER Date of :1972 Address: [address] Payer ID:Not on file Type:PPO Address: [address] [facility] PP EPO [facility] PPO EPO [facility] PPO EPO Member Subscriber Plan / Payer (Ef fective 2022-Present) Name:Orchard, John Relation to Subscriber:Spouse Name:DEVEN SOMMER Date of :1972 Address: [address] [place] Payer ID:Not on file Type:PPO Address: [address] PPO EPO Care Teams Chief Optometry Service Relationship Specialty Start Date End Date Sp Manuel MD [address] [place] [address] Dr Dixon MA PCP - General Internal Medicine 09/20/21 Additional Source Comments The information contained in this document represents components of the legal health record. It is not the complete legal health record.[facility]
== END 2025-05-10 11:00 | disposition home or self-care (01) ==
LOC: HO.LNP 10:59
PROVIDERS: Visit Provider Internal Medicine
DX: Z00.00 Encounter for general adult medical examination without abnormal findings (principal); Z12.5 Encounter for screening for malignant neoplasm of prostate; I10 Essential (primary) hypertension
CPT/HCPCS: 80053; 80061; 81001; 84153; 85025